=== PATIENT | female | born 1940 | race Caucasian/White ===

== ENCOUNTER → 2017-04-25 | Outpatient (CLI) | payer MEDICARE ==
[~2017-04-25] MED LIST: ACETAMINOPHEN PO; ATIVAN PO; ATROVENT HFA12.9 G1 IH; ATROVENT HFA12.9 GM INH; BACITRACIN30 GM TOP; BENADRYL PO; BENZONATATE PO; BYSTOLIC10 MG PO; CARDIZEM PO; CHLORTABS4 MG PO; DOXYCYCLINE PO; DYAZIDE 37.5/251 CAP PO; HYDROCHLOROTHIA25 MG PO; LORAZEPAM1 MG PO; MEDROL PO; MUCINEX100 MG/5 M PO; NON-ASA500 M1 PO; OMEPRAZOLE20 M2 PO; PEPCID AC20 M2 PO; PREDNISONE PO; PSEUDOEPHEDRIN PO; SALINE NOSE SPR45 M1; SECTRAL200 MG PO; THEOPHYLLIN PO; VITAMIN D31000 UNIT PO
--- NOTE | ~2017-04-25 | CT2 ---
[facility] A Service of [facility] RADIOLOGY TEXT RESULTS PATIENT: KIERSTEN ELKINS LOCATION: [facility] : 41 UNIT #: [id number] AGE: [address]: Fredi Sims MD SEX: F ORDER DR: [id number] [place] [id number] O MR#: [id number] Acc #: [id number] NAME: KIERSTEN ELKINS : 1940 SEX: F STUDY DATE/TIME: 04/25/2017 12:30 UNIT: [facility] ROOM: STUDY DESCRIPTION: CT Abd and Pelv W Cont Attending Physician: Fredi Sims M.D. Referring Physician: Fredi Sims M.D. Ordering Physician: Fredi Sims M.D. Primary Care Physician: Fredi Sims M.D. MEDICAL IMAGING REPORT This report is preliminary unless electronic signature is present. EXAM CT abdomen and pelvis with IV contrast. COMPARISON February 03, 2015 INDICATION 76-year-old female with left-sided abdominal pain with constipation for approximately 4 months. Patient reports weight loss for that time. FINDINGS Axial CT imaging of the abdomen and pelvis was performed after IV administration of 100 mL of Isovue-370. Coronal and sagittal reformats were constructed. This CT exam was performed with one or more of the following radiation dose reduction techniques: automatic exposure control, adjustment of mA and/or kV according to patient size, and iterative reconstruction. Tiny fat-containing umbilical hernia. Mild enthesopathy at the iliac spines. Mild degenerative change at the pubic symphysis. Moderate multilevel degenerative facet disease of the lumbar spine. There is degenerative grade 1 anterolisthesis of L4 and L5 with small posterior disc protrusion at this level as well as at L3-L4. There is dextroscoliosis of the lumbar spine with multilevel marginal osteophyte formation. Degenerative disc height loss is noted at multiple levels of the lumbar spine as well as at T12-L1. Degenerative subchondral cystic change is noted at the right hip joint. No acute fractures or suspicious osseous lesions. There is small hiatal hernia. Prior cholecystectomy. The liver, spleen and adrenal glands are unremarkable. There is mild fatty infiltration of the pancreas. 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 There is STS. 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 No hydronephrosis or hydroureter. No renal or ureteral calculi. Evaluation of the urinary bladder is limited by collapse. There are bilateral pelvic phleboliths. There has been prior hysterectomy. No adnexal masses. Moderate diffuse diverticulosis of the sigmoid colon. No evidence of acute diverticulitis. No free fluid or pneumoperitoneum. Normal bowel caliber. There are a few diverticula of the right colon without evidence of acute diverticulitis. The appendix is not seen keeping with prior appendectomy. No adenopathy. There is mild tortuosity of the abdominal aorta due to scoliosis. There are diffuse calcification of the abdominal aorta and its branches. The calcifications involving the origins of the celiac, superior mesenteric and bilateral renal arteries. These vessels appear patent and there is no evidence of significant associated stenosis. IMPRESSION 1. No acute abnormality. Moderate colonic diverticulosis without evidence of acute diverticulitis. 2. Prior appendectomy, cholecystectomy, and hysterectomy. 3. 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 Imaging follow up is recommended as clinically indicated. 4. Degenerative changes of the lumbar spine with scoliosis as described in the body of the report. Small posterior disc protrusions at multiple levels. 5. Mild degenerative change of the right hip. 6. Small hiatal hernia. Dictated by... Adalberto Montesinos M.D. THIS IS AN ELECTRONICALLY VERIFIED REPORT Adalberto Montesinos M.D. at 04/29/2017 10:16 AM PREM/moriah TD: 04/25/2017 21:05 JOB #: [id number] MEDICAL IMAGING REPORT Page 1 of 1
[2017-04-25 11:15] LABS: POC - CREATININE 0.81 mg/dL (0.44-1.03); POC - GFR >60.0 mL/min (>60)
== END | disposition home or self-care (01) ==
LOC: SMAM 10:45 → SCT 10:48 → SMAM 11:00 → SCT 11:20
PROVIDERS: General Practice
DX: R19.4 Change in bowel habit (principal); R63.4 Abnormal weight loss; K57.30 Diverticulosis of large intestine without perforation or abscess without bleeding; I72.2 Aneurysm of renal artery; K44.9 Diaphragmatic hernia without obstruction or gangrene; M47.896 Other spondylosis, lumbar region; M41.9 Scoliosis, unspecified; M51.26 Other intervertebral disc displacement, lumbar region; Z90.49 Acquired absence of other specified parts of digestive tract; Z90.89 Acquired absence of other organs; Z90.710 Acquired absence of both cervix and uterus
CPT/HCPCS: 74177; 82565; Q9967

== ENCOUNTER → 2017-04-29 | Outpatient (CLI) | payer MEDICARE ==
--- NOTE | ~2017-04-29 | MY11 ---
[facility] A Service of [facility] RADIOLOGY TEXT RESULTS PATIENT: KIERSTEN ELKINS LOCATION: [facility] : 41 UNIT #: [id number] AGE: [address]: Fredi Sims MD SEX: F ORDER DR: [id number] [address] [address] [id number] O MR#: [id number] Acc #: [id number] NAME: KIERSTEN ELKINS : 1940 SEX: F STUDY DATE/TIME: 04/29/2017 10:52 UNIT: [facility] ROOM: STUDY DESCRIPTION: MY Mammogram Screening Dig Nolberto Attending Physician: Fredi Sims M.D. Referring Physician: Fredi Sims M.D. Ordering Physician: Fredi Sims M.D. Primary Care Physician: Fredi Sims M.D. MEDICAL IMAGING REPORT This report is preliminary unless electronic signature is present. EXAM Bilateral digital screening mammogram with CAD, 04/29/2017. CLINICAL HISTORY 76-year-old female with no personal or family history of breast cancer. FINDINGS The background breast parenchyma consists of scattered fibroglandular densities. No suspicious mass, microcalcification, or architectural distortion. The exam is compared to prior mammogram dated 02/03/2015. IMPRESSION Negative mammogram. RECOMMENDATIONS Annual screening mammogram. Patients over the age of 40 are entered into a reminder system with target due date for the next mammogram. A result letter will also be sent to the patient. BIRADS: 1 Negative Dictated by... Kushal Lin M.D. THIS IS AN ELECTRONICALLY VERIFIED REPORT Kushal Lin M.D. at 04/29/2017 4:48 PM [facility]/rex [facility] A Service [facility] RADIOLOGY TEXT RESULTS PATIENT: KIERSTEN ELKINS LOCATION: [facility] : 41 UNIT #: [id number] AGE: [address]: Fredi Sims MD SEX: F ORDER DR: TD: 04/29/2017 14:55 JOB #: [id number] MEDICAL IMAGING REPORT Page 1 of 1
== END | disposition home or self-care (01) ==
LOC: SRAD 07:33
DX: Z12.31 Encounter for screening mammogram for malignant neoplasm of breast (principal)
CPT/HCPCS: G0202

== ENCOUNTER → 2017-05-06 | Outpatient (CLI) | payer MEDICARE ==
--- NOTE | ~2017-05-06 | BD1 ---
[facility] A Service of [facility] RADIOLOGY TEXT RESULTS PATIENT: KIERSTEN ELKINS LOCATION: [facility] : 41 UNIT #: [id number] AGE: [address]: Fredi Sims MD SEX: F ORDER DR: [id number] [address] [address] [id number] O MR#: [id number] Acc #: [id number] NAME: KIERSTEN ELKINS : 1940 SEX: F STUDY DATE/TIME: 05/06/2017 14:11 UNIT: [facility] ROOM: STUDY DESCRIPTION: Dexa Bone Dens 1+ Site Attending Physician: Fredi Sims M.D. Referring Physician: Fredi Sims M.D. Ordering Physician: Fredi Sims M.D. Primary Care Physician: Fredi Sims M.D. MEDICAL IMAGING REPORT This report is preliminary unless electronic signature is present. EXAM Bone density spine hip, 05/06/2017 HISTORY Post menopause. Prior history of smoking for 33 years. Not currently. FINDINGS Bone density scanning performed upper 4 lumbar vertebral segments and both proximal femurs in this [age]-year-old, 193-pound female. No comparison. L1-L4: Bone mineral density 1.225 g/cm2 for T-score 0.4 standard deviation above the mean for reference population normal young individuals and Z-score 1.4 standard deviations above the mean for age-matched population. LEFT FEMUR: Total bone mineral density 1.010 g/cm2 for T-score 0 standard deviations from the mean for reference population normal young individuals, Z-score 1.2 standard deviations above the mean for age-match population. Left femoral neck bone mineral density 0.914 g/cm2 for T-score 0.9 standard deviation below mean for reference population normal young individuals and Z-score 0.6 standard deviations above the mean for age-match population. RIGHT PROXIMAL FEMUR: Total bone mineral density 0.976 g/cm2 for T-score 0.3 standard deviations below mean for reference population normal young individuals and Z-score 1.0 standard deviations above the mean for age-match population. Right femoral neck bone mineral density 0.912 g/cm2 for T-score 0.9 standard deviations below mean for reference population normal young individuals and Z-score 0.5 standard deviations above the mean for age-match population. IMPRESSION STS. [facility] A Service of [facility] RADIOLOGY TEXT RESULTS PATIENT: KIERSTEN ELKINS LOCATION: [facility] : 41 UNIT #: [id number] AGE: [address]: Fredi Sims MD SEX: F ORDER DR: 1. Normal bone mineral density in the upper 4 lumbar vertebral segments overall and in bilateral proximal femurs, inclusive of bilateral femoral necks. Please correlate with patient's clinical status. Continued surveillance recommended. Dictated by... Jorge Srivastava M.D. THIS IS AN ELECTRONICALLY VERIFIED REPORT Jorge Srivastava M.D. at 05/07/2017 12:11 PM HESHAM/bi TD: 05/06/2017 21:15 JOB #: [id number] MEDICAL IMAGING REPORT Page 1 of 1
== END | disposition home or self-care (01) ==
LOC: SRAD 14:02
DX: Z13.820 Encounter for screening for osteoporosis (principal); Z78.0 Asymptomatic menopausal state
CPT/HCPCS: 77080